=== PATIENT | male | born 1960 | race Caucasian/White ===

== ENCOUNTER → 2016-04-07 | Outpatient (CLI) | payer OTHER ==
--- NOTE | 2016-04-07 12:39 | MR ---
MRI Cervical Spine (Without and With Contrast) History: R20.2, paresthesias of the skin, R53.1, weakness bilateral hands and arms. Technique: Sagittal T1, T2 and axial T1, T2 MR sequences of the cervical spine without contrast. Post contrast sagittal and axial T1-weighted sequences obtained with the uneventful intravenous administra tion of 6.5 mL Gadavist contrast. Findings: No cervical compression fractures or destructive osseous lesions. Endplate diskogenic mercado ges especially at C6-C7. Diffusely decreased T1 bone marrow signal intensity which may represent anem ia or lymphoproliferative disorder. Cerebellar tonsils are in normal position. Cervical spinal cord demonstrates normal signal without cord edema or myelomalacia. C2-C3: Moderate left facet arthropathy and mild right facet arthropathy without stenosis. C3-C4: Moderate bilateral facet arthropathy, mild degenerative disk disease and bilateral uncovertebr al osteophytes resulting in mild central canal stenosis and mild to moderate bilateral neural foramin al stenosis. C4-C5: Mild degenerative disk disease and moderate bilateral facet arthropathy, left worse than right , resulting in mild to moderate left neural foraminal stenosis without central canal stenosis or righ t neural foraminal stenosis. C5-C6: Moderate degenerative disk disease with dorsal disk/osteophyte complex, right uncovertebral os teophytes and moderate bilateral facet arthropathy resulting in mild central canal stenosis, mild to moderate right neural foraminal stenosis, without left neural foraminal stenosis. C6-C7: Severe degenerative disk disease with moderate loss of disk height, endplate diskogenic change s, dorsal disk/osteophyte complex, bilateral uncovertebral osteophytes and moderate bilateral facet a rthropathy resulting in mild central canal stenosis and moderate to severe bilateral neural foraminal stenosis, right worse than left. C7-T1: Moderate bilateral facet arthropathy without disk herniation or stenosis. Postcontrast images demonstrate no diskitis, osteomyelitis, or enhancing lesions. No evidence of cerv ical spinal cord demyelinating plaques or enhancing masses. Impression: 1. No evidence of demyelinating disease, cord compression, or enhancing masses. 2. C6-C7: Moderate to severe bilateral neural foraminal stenosis and mild central canal stenosis seco ndary to severe degenerative disk disease with bilateral uncovertebral osteophytes, dorsal disk/osteo phyte complex and bilateral facet arthropathy. 3. Decreased T1 bone marrow signal intensity of the cervical and upper thoracic spine which may repre sent anemia or lymphoproliferative disorder. 4. Please see above findings at specific disk levels.
== END ==
LOC: FIMAGING 07:16
PROVIDERS: ATTEND Psychiatry & Neurology Neurology
DX: M50.323 Other cervical disc degeneration at C6-C7 level (principal); M99.71 Connective tissue and disc stenosis of intervertebral foramina of cervical region; M12.88 Other specific arthropathies, not elsewhere classified, other specified site

== ENCOUNTER → 2016-04-21 | Outpatient (CLI) | payer OTHER ==
--- NOTE | 2016-04-21 10:15 | US ---
Ultrasound of the Abdomen Complete History: Elevated liver function tests. R79.89 Findings: Gallbladder: No shadowing calculi, wall thickening, or pericholecystic fluid. Common bile duct is 3 m m in diameter which is normal. Liver: Homogeneous in echogenicity and measures 17.5 cm in length. No definite focal lesions. Renal: Right kidney measures 11.3 x 4.3 x 5.1 cm and left kidney 11.3 x 5.1 x 4.8 cm without hydronep hrosis in either kidney. In the upper pole left kidney there is a 2.8 x 2.9 x 3.2 cm simple cyst. In the midpole left kidney there is a 2.9 x 2.9 x 2.8 cm complex cyst with thin septation. Spleen: Homogeneous and 12 cm in length without splenomegaly. Pancreas: Homogeneous without peripancreatic fluid. Benign appearing peripancreatic lymph node measur ing 14 x 6 mm. Aorta: Atherosclerotic abdominal aorta without aneurysm. IVC: Grossly patent. Impression: 1. No cholelithiasis or biliary ductal dilation. 2. Mild hepatomegaly without definite focal masses or ascites. 3. No splenomegaly. 4. Left kidney cysts without hydronephrosis. 5. Atherosclerotic aorta without aneurysm.
== END ==
LOC: BMCIMAGING 08:34
PROVIDERS: ATTEND Family Medicine
DX: R16.0 Hepatomegaly, not elsewhere classified (principal); N28.1 Cyst of kidney, acquired

== ENCOUNTER → 2016-07-28 | Outpatient (CLI) | payer OTHER | LOC: BMCIMAGING 09:26 | PROVIDERS: ATTEND Physician Assistant | DX: Z13.828 Encounter for screening for other musculoskeletal disorder (principal); M16.11 Unilateral primary osteoarthritis, right hip ==

== ENCOUNTER → 2016-12-07 | Outpatient (CLI) | payer OTHER | LOC: CIMAGING 08:17 | PROVIDERS: ATTEND Family Medicine | DX: Z12.2 Encounter for screening for malignant neoplasm of respiratory organs (principal); J98.4 Other disorders of lung; J45.909 Unspecified asthma, uncomplicated; Z87.891 Personal history of nicotine dependence | CPT/HCPCS: 71250-PO ==

== ENCOUNTER → 2016-12-08 | Outpatient (CLI) | payer OTHER | LOC: FIMAGING 08:51 | PROVIDERS: ATTEND Orthopaedic Surgery | DX: Z01.818 Encounter for other preprocedural examination (principal); M25.851 Other specified joint disorders, right hip; M25.451 Effusion, right hip; M51.36 Other intervertebral disc degeneration, lumbar region ==

== ENCOUNTER 2016-12-13 09:05 | Inpatient (IN) | payer OTHER ==
--- NOTE | 2016-12-13 07:03 | PDHPUP ---
History & Physical Update H&P update statement: This history and physical update is based on an assessment of the patient which was completed after admission or registration (within 24 hours), but prior to the surgery/procedure.
--- NOTE | 2016-12-13 07:07 | PDIAF ---
- Diagnosis Diagnosis: right hip djd Code Status: Full Code - Medication Management Discharge Medications: Medications to Continue on Transfer Adefovir Dipivoxil [Hepsera] 10 mg PO HS 12/01/16 [Last Taken Unknown] Diclofenac Sodium [Pennsaid] 20 gm TP BID 12/01/16 [Last Taken Unknown] Gabapentin [Neurontin 100 MG (*)] 200 mg PO HS 12/01/16 [Last Taken Unknown] oxyCODONE IR [Oxycodone Ir (*)] 5 mg PO DAILY PRN 12/01/16 [Last Taken Unknown] Discharge Medications: Refer to the Discharge Home Medication list for PRN reason. - Orders Services needed: Physical Therapy Diet Recommendation: no restrictions on diet Diet Texture: Regular Texture Diet Activity/Weight Bearing Restrictions: wbat. anterior hip precautions. daily dressing changes. no soaking. may shower without bandage. seek attn for increasing redness, swelling, drainage, discharge. f/u at two weeks - Follow Up Care Current Providers and Referrals: Fely Rachel MD [Primary Care Provider] -
[~2016-12-13 09:05] MED LIST: BISACODYL 10 MG SUPP PR PRN; DIAZEPAM 5 MG TAB PO PRN; DIPHENOXYLATE/ATROPINE LOMOTIL 1 TAB PO PRN; LACTULOSE 20 GM/30 ML UDCUP PO PRN; LR 1,000 ML IV SCH; MAGNESIUM HYDROXIDE 30 ML UDCUP PO PRN; METOCLOPRAMIDE 10 MG/2 ML VIAL IVP PRN; NS IV ONE; ONDANSETRON 4 MG/2 ML VIAL IVP PRN; ONDANSETRON DISINTEGRATING 4 MG TAB PO PRN; PHARMACY PAIN CONSULT 1 EA MISC PRN; POLYETHYLENE GLYCOL 3350 17 GM PKT PO PRN; PROMETHAZINE HCL 25 MG SUPPR PR PRN; PROMETHAZINE HCL 25 MG/ML INJ IVP PRN; ROPIVACAINE 0.2% 80 MG, EPINEPHrine 0.2 MG, morphINE 10 MG in BAG 0 ML IU ONE; TEMAZEPAM 15 MG CAP PO PRN; TRANEXAMIC ACID 3,000 MG in NS 50 ML IRR ONE; TRANEXAMIC ACID IV ONE; diphenhydrAMINE 25 MG CAP PO PRN; traMADol 50 MG TAB PO PRN
--- NOTE | 2016-12-13 09:21 | PDANEPAE ---
ANE History of Present Illness 56 year old male w/ PMHx of Hep. B & Osteoarthritis presents for total hip replacment. ANE Past Medical History - Cardiovascular History Hx Hypertension: No Hx Arrhythmias: No Hx Chest Pain: No Hx Coronary Artery / Peripheral Vascular Disease: Yes Hx CHF / Valvular Disease: No Hx Palpitations: No - Pulmonary History Hx COPD: Yes Hx Asthma/Reactive Airway Disease: No Hx Recent Upper Respiratory Infection: No Hx Oxygen in Use at Home: No Hx Sleep Apnea: No Sleep Apnea Screening Result - Last Documented: Negative Pulmonary History Comment: 42 year of smoking - Neurologic History Hx Cerebrovascular Accident: No Hx Seizures: No Hx Dementia: No - Endocrine History Hx Diabetes: No Hypothyroid: No Hyperthyroid: No Obesity: no - Renal History Hx Renal Disorders: No - Liver History Hx Hepatic Disorders: Yes Hepatic History Comment: Hx of Hep B - Neurological & Psychiatric Hx Hx Neurological and Psychiatric Disorders: No Neurological / Psychiatric History Comment: No alcohol in 30 yrs- hx of. - Cancer History Hx Cancer: No - Congenital Disorder History Hx Congenital Disorders: No - GI History Hx Gastrointestinal Disorders: No - Other Health History Other Health History: OA R hip -on Gabapentin for pain. Upper denture - Chronic Pain History Chronic Pain: Yes (R hip) - Surgical History Prior Surgeries: L arm ORIF. L cheekbone sx ANE Review of Systems Review of systems is: negative Review of Systems: - Exercise capacity Exercise capacity: >=4 METS METS (RN): 4 METS ANE Patient History - Allergies Allergies/Adverse Reactions: acetaminophen [From Tylenol] Allergy (Verified 12/13/16 09:52) Other-Enter Comments aspirin Allergy (Verified 12/13/16 09:52) Rash NSAIDS (Non-Steroidal Anti-Inflamma Allergy (Verified 12/13/16 09:52) Other-Enter Comments - Home Medications Home medications: home medication list seen and reviewed Home Medications: Adefovir Dipivoxil [Hepsera] 10 mg PO HS 12/01/16 [Last Taken 12/12/16] Diclofenac Sodium [Pennsaid] 20 gm TP BID 12/01/16 [Last Taken 12/08/16] Gabapentin [Neurontin 100 MG (*)] 200 mg PO HS 12/01/16 [Last Taken 12/12/16] oxyCODONE IR [Oxycodone Ir (*)] 5 mg PO DAILY PRN 12/01/16 [Last Taken 12/12/16] - NPO status NPO Status: no food or drink >8 hours - Anes Hx Anes Hx: no prior problems - Smoking Hx Smoking Status: Former smoker - Alcohol Use Alcohol Use: Rarely - Family Anes Hx Family Anes Hx: neg - N/A ANE Labs/Vital Signs - Vital Signs Vital Signs: reviewed preoperatively; see RN documention for details Height: 177.8 cm Weight: 63.503 kg ANE Physical Exam - Airway Neck exam: FROM Mallampati Score: Class 1 Mouth exam: dentures - Pulmonary Pulmonary: no respiratory distress - Cardiovascular Cardiovascular: regular rate and rhythym - ASA Status ASA Status: II ANE Anesthesia Plan Anesthesia Plan: MAC, spinal
[2016-12-13] MEDS ORDERED: CALCIUM CHLORIDE 1 GM/10 ML INJ ONE (09:23)
[2016-12-13] MEDS ORDERED: THROMBIN (BOVINE) 5,000 UNIT VIAL TP ONE (09:23)
[2016-12-13] MEDS ORDERED: ceFAZolin 1 GM/5 ML SYR ONE (09:24)
[2016-12-13] MEDS ORDERED: FAMOTIDINE 20 MG TAB PO ONE (09:41)
[2016-12-13] MEDS ORDERED: ACETAMINOPHEN 325 MG TAB PO ONE (09:41)
[2016-12-13] MEDS ORDERED: ceFAZolin 2 GM/DEXTROSE 100 ML IV ONE (09:41)
[2016-12-13] MEDS ORDERED: LIDOCAINE 1% 2 ML INJ ID PRN (09:56)
[2016-12-13] MEDS ORDERED: LR 1,000 ML IV ONE (09:56)
[2016-12-13] MEDS ORDERED: MIDAZOLAM 2 MG/2 ML VIAL ONE (10:41)
[2016-12-13] MEDS ORDERED: MIDAZOLAM 2 MG/2 ML VIAL IVP ONE (10:41)
[2016-12-13] MEDS ORDERED: PROPOFOL/EMULSION 500 MG/50 ML BOTTLE IV ONE ×3 (10:44→12:03)
[2016-12-13] MEDS ORDERED: ONDANSETRON 4 MG/2 ML VIAL ONE ×2 (11:16→13:13)
[2016-12-13] MEDS ORDERED: DEXAMETHASONE 4 MG/ML VIAL ONE (11:16)
[2016-12-13] MEDS ORDERED: fentaNYL 100 MCG/2 ML INJ ONE ×2 (11:32→12:41)
[2016-12-13] MEDS ORDERED: epHEDrine SULFATE 10 MG/ML SYR ONE (11:42)
[2016-12-13] MEDS ORDERED: ACETAMINOPHEN 325 MG TAB PO SCH (12:00)
[2016-12-13] MEDS ORDERED: NALOXONE HCL 0.4 MG/ML INJ IVP PRN (12:23)
[2016-12-13] MEDS ORDERED: OXYCODONE/APAP 5/325 TAB PO PRN (12:23)
[2016-12-13] MEDS ORDERED: fentaNYL 100 MCG/2 ML INJ IVP PRN (12:23)
[2016-12-13] MEDS ORDERED: LR 500 ML IV PRN (12:34)
[2016-12-13] MEDS ORDERED: ONDANSETRON 4 MG/2 ML VIAL IVP PRN (12:34)
[2016-12-13] MEDS ORDERED: HYDROmorphONE/DILAUDID 1 MG/ML INJ ONE (13:13)
[2016-12-13] MEDS: HYDROmorphONE/DILAUDID 1 MG/ML INJ IVP PRN ×3 (13:16→13:49)
[2016-12-13] MEDS ORDERED: oxyCODONE IR 5 MG TAB ONE (13:51)
[2016-12-13] MEDS: oxyCODONE IR 5 MG TAB PO PRN ×3 (13:51→20:51)
[2016-12-13] MEDS: ASPIRIN EC 81 MG TAB PO SCH (15:58)
[2016-12-13] MEDS: TRANEXAMIC ACID 650 MG TAB PO SCH ×2 (15:58→16:11)
[2016-12-13] MEDS: SENNOSIDES/DOCUSATE SODIUM TAB PO SCH ×2 (15:59→20:46)
[2016-12-13] MEDS ORDERED: [UNRECOGNIZED DRUG - OTHER] PO SCH ×2 (16:00→21:00)
[2016-12-13] MEDS ORDERED: GABAPENTIN 100 MG CAP PO SCH ×2 (16:00→21:00)
[2016-12-13] MEDS: ceFAZolin 2 GM/DEXTROSE 100 ML IV SCH ×2 (16:10→20:47)
--- NOTE | 2016-12-13 16:44 | POSTANESTH ---
Post Anesthetic Evaluation Cardiovascular Status: Normal, Stable, Similar to Pre-Op Cond Respiratory Status: Normal, Stable, Similar to Pre-op Cond. Level of Consciousness/Mental Status: Can Participate in Eval, Alert and Oriented Pain Control: Adequate, Prn Tx Ordered Nausea/Vomiting Control: Adequate, Prn Tx Ordered Complications Possibly Related to Anesthesia: None Noted
[2016-12-13] MEDS: FAMOTIDINE 20 MG TAB PO SCH (20:46)
[2016-12-14] MEDS: TRANEXAMIC ACID 650 MG TAB PO SCH (00:36)
[2016-12-14] MEDS: oxyCODONE IR 5 MG TAB PO PRN ×2 (01:10→08:52)
[2016-12-14 06:00] LABS: HEMATOCRIT 38.3 % (40.0-51.0)
--- NOTE | 2016-12-14 07:12 | PDIAF ---
- Diagnosis Diagnosis: right hip djd Code Status: Full Code - Medication Management Discharge Medications: Medications to Continue on Transfer Adefovir Dipivoxil [Hepsera] 10 mg PO DAILY16 12/01/16 [Last Taken 12/12/16] Diclofenac Sodium [Pennsaid] 20 gm TP BID 12/01/16 [Last Taken 12/08/16] Gabapentin [Neurontin 100 MG (*)] 200 mg PO DAILY16 12/01/16 [Last Taken ] oxyCODONE IR [Oxycodone Ir (*)] 5 mg PO DAILY PRN 12/01/16 [Last Taken 12/12/16] Aspirin EC [Aspirin EC 81 mg (*)] 81 mg PO DAILY tab 12/14/16 [Last Taken Unknown] oxyCODONE IR [Oxycodone Ir (*)] 5 - 10 mg PO Q3HRS PRN #70 tab 12/14/16 [Last Taken Unknown] Discharge Medications: Refer to the Discharge Home Medication list for PRN reason. - Orders Services needed: Physical Therapy Diet Recommendation: no restrictions on diet Diet Texture: Regular Texture Diet Activity/Weight Bearing Restrictions: wbat. anterior hip precautions. daily dressing changes. no soaking. may shower without bandage. seek attn for increasing redness, swelling, drainage, discharge. f/u at two weeks - Follow Up Care Current Providers and Referrals: Fely Rachel MD [Primary Care Provider] -
--- NOTE | 2016-12-14 07:47 | GDS ---
[f rep st] DISCHARGE SUMMARY ADMISSION DIAGNOSIS: Right hip degenerative joint disease. DISCHARGE DIAGNOSIS: Right hip degenerative joint disease. PROCEDURE: Right total hip arthroplasty. OPERATIVE INDICATIONS: The patient is a 56-year-old gentleman with end-stage arthritis to his right hip. Clinical and radiographic features are consistent with this. He has failed attempts at conserv ative management. Clinical and radiographic features are consistent with hip arthritis. I, therefor e, recommended total hip replacement. He understood the risks, benefits, alternatives and wished to proceed. Written consent was signed and placed in patient's chart. HOSPITAL COURSE: Patient was admitted to the hospital floor after uncomplicated total hip arthroplas ty. He tolerated the procedure well. Postoperatively had no complications. At the time of discharg e, he is tolerating an oral diet. His pain is well controlled on oral medicines. He has no calf swe lling or tenderness. Negative Homans bilaterally. Dressings are clean, dry, and intact. Serial hem atocrit has been stable. X-rays demonstrate anatomic positioning with no fracture lucency with ana maria ntric reduction. DISCHARGE ACTIVITY: He is weightbearing as tolerated. Anterior hip precautions. Daily dressing whit nges. No soaking or immersion. FOLLOWUP: At 2 weeks. DISCHARGE MEDICATIONS: Baby aspirin 81 mg p.o. daily for 6 weeks and oxycodone 5 mg 1-3 every 4 hour s p.r.n. pain. Seek attention for increasing redness, swelling, drainage, discharge, or other focal complaint. /[id number]/MODL
[2016-12-14] MEDS: ASPIRIN EC 81 MG TAB PO SCH (08:52)
[2016-12-14] MEDS: FAMOTIDINE 20 MG TAB PO SCH (08:52)
[2016-12-14] MEDS: SENNOSIDES/DOCUSATE SODIUM TAB PO SCH (08:52)
--- NOTE | 2016-12-14 10:01 | ASMTCMCOM ---
CM Note CM Note Notes: Met with patient regarding discharge poc. PT recommending HHC, patient in agreement. CM explained HC choices, patient would like [facility]. Spoke with Chio at [facility] regarding referral, able to accept. Patient's mother to assist in obtaining DME and will transport patient back home. [facility] to access discharge orders/meds online. CM avail. for any further needs. Date Signed: 12/14/2016 10:01 AM Electronically Signed By:Jenae Flores RN
[2016-12-14 12:03] VITALS: BP 119/72; PULSE 87; RESP 16; TEMP 99.1; O2SAT 92
--- NOTE | 2016-12-14 14:40 | ASDISCHSUM ---
Discharge Information Plan Status:Home with Home Health Medically Cleared to Leave:12/14/2016 Discharge Date:12/14/2016 01:21 PM D/C Disposition:Home Health Service [facility] D/C Disposition:Home, Routine, Self-Care Projected Discharge Date:12/14/2016 11:00 AM Transportation at D/C:Family Discharge Delay Reason: Follow-Up Date:12/14/2016 11:00 AM Discharge Slot: Final Diagnosis: Placement Information Referral Type:*Home Health Care Services Referral ID:[id number] Provider Name:[facility] [address] [place] [address] Address 2: City:[place] Selection Factors: State:[place] Patient Contact Information Contact Name:TREVOR Relationship:Mother Address: Work Phone: City: [facility] Phone: [facility] Code: Email: Financial Information Financial Class:HMO and PPO Plans Primary Plan Desc:[employer] Primary Plan Number:[id number] Secondary Plan Desc: Secondary Plan Number: Assessment Information [facility] CM Progress Note CM Note CM Note Notes: Met with patient regarding discharge poc. PT recommending HHC, patient in agreement. CM explained HC choices, patient would like [facility]. Spoke with Chio at [facility] regarding referral, able to accept. Patient's mother to assist in obtaining DME and will transport patient back home. [facility] to access discharge orders/meds online. CM avail. for any further needs. Date Signed: 12/14/2016 10:01 AM Electronically Signed By:Jenae Flores RN Intervention Information
--- NOTE | 2016-12-17 15:36 | GOP ---
[f rep st] OPERATIVE REPORT DATE OF OPERATION: 12/13/2016 SURGEON: Eitan Canales MD FLASH DEVELOPER: Roby Foss, NETWORK SECURITY ADMINISTRATOR, PROPOSAL SPECIALIST, surgical aides teacher,, who was a medical necessity for the entir ety of the case. PREOPERATIVE DIAGNOSIS: Right hip degenerative joint disease. POSTOPERATIVE DIAGNOSIS: Right hip degenerative joint disease. PROCEDURE PERFORMED: Right total hip arthroplasty-MAKOplasty. FINDINGS: SPECIMENS: Pathology, the femoral head. INDICATIONS: The patient is a 56-year-old gentleman with end-stage arthritis to his right hip. He h as failed all attempts at conservative management. Clinical and radiographic features are consistent with hip arthritis. Given the persistent nature of his symptoms, I have recommended surgical interv ention. I have outlined the surgical procedure, risks, benefits, and alternatives. He wished to pro ceed. Written consent was signed and placed in the patient's chart. DESCRIPTION OF PROCEDURE: The patient was identified in the preanesthesia area. The right hip clear ly demarcated as operative site with indelible marker. He was given 2 g of Ancef intravenously en ro caprice to the operative suite. In the OR, general endotracheal anesthesia was administered. Attention was turned to the pelvis and both lower extremities. These were sterilely prepped and draped in the usual fashion. Appropriate time-out procedure was carried out. Attention was first turned to the le ft hemipelvis. A 2 cm incision was made over the superior iliac crest, and 3 pins were then placed f or the MAKOplasty protocol reference array. Attention was then turned to the right hip. An anterior approach was made. Thick subcutaneous flaps were elevated, followed by elevation of the tensor fascia. The tensor was retracted laterally. The underlying vascular structures were identified, ligated, and transected. The rectus was elevated of f the anterior capsule. Retractors were placed in an extracapsular position over the medial and supe rior aspect of the femoral neck. A T was made in the capsule and the retractors were placed into an intracapsular position. A pelvic acetabular checkpoint was placed. A bony wedge was removed from th e femoral neck, followed by removal of the head. This demonstrated eburnation of the bone which was consistent with end-stage arthritis. The labrum was sharply excised. The bony landmarks to the acet abulum were entered into the robot in the MAKOplasty protocol using a single stage reamer. A size 60 mm outer diameter reamer was placed with an opening angle of 40 degrees and anteversion of 20 degree s. A 60 mm titanium shell was then impacted fully. Two 6.5 mm cancellous screws were then opened. A single 6.5 mm cancellous screw was placed. A Trident X3 0-degree polyethylene insert was then plac ed and confirmed to be fully seated. Attention was then turned to the femur, which was delivered through the use of extension of the table , soft tissue releases, and retractors. The proximal canal was opened. Serial broaching was carried out to a size 5 stem. Intraoperative trialing was carried out. Appropriate fluoroscopic imaging wa s utilized, and ultimately a size 5 stem was impacted across the trunnion and confirmed to be fully s eated. A 36 mm, +7.5 mm Biolox head was then impacted across the trunnion. Trial reduction revealed appropriate leg length congregation. Stability profile was full extension and external rotation with out instability. The wound was copiously irrigated, closed in layers using 0 Vicryl, 2-0 Monocryl, a nd ladan. The margins were instilled with a joint cocktail of ropivacaine, morphine, Toradol, and epinephrine. Sterile dressing was applied. The patient was awakened, extubated and taken to recover y room in good, stable condition. TOTAL TOURNIQUET TIME: None. COMPLICATIONS: None. IMPLANTS: Shelton Tritanium acetabular shell, size 60, single 6.5 mm cancellous bone screw, a Triden t X3 0-degree polyethylene insert, 36 mm inner diameter Accolade II 132 degree neck angle hip stem, s ize 5, and Biolox ceramic head 36 mm, +7.5 mm neck length. The patient was awakened, extubated and taken to recovery room in good, stable condition. Copy requested to: Primary Care /[id number]/MODL
== END 2016-12-14 13:21 | disposition home health service (06) | DRG 470 ==
LOC: F3N 09:05
PROVIDERS: ADMIT Orthopaedic Surgery; ATTEND Orthopaedic Surgery
PROC: 0SR904Z Replacement of Right Hip Joint with Ceramic on Polyethylene Synthetic Substitute, Open Approach (ICD-10-PCS; principal; 2016-12-13 11:00)
DX: M16.11 Unilateral primary osteoarthritis, right hip (principal); Z86.19 Personal history of other infectious and parasitic diseases; Z87.891 Personal history of nicotine dependence
CPT/HCPCS: 97110-GP; 97116-GP; 97161-GP; 97165-GO; 97530-GP; 97535-GO; C1713; J0171; J0690; J1100; J1170; J2250; J2405; J2704; J2795; J3010

== ENCOUNTER → 2017-02-01 | Outpatient (CLI) | payer OTHER | LOC: BMCIMAGING 08:25 | PROVIDERS: ATTEND Physician Assistant | DX: Z09 Encounter for follow-up examination after completed treatment for conditions other than malignant neoplasm (principal); Z96.641 Presence of right artificial hip joint ==

== ENCOUNTER → 2018-01-24 | Outpatient (CLI) | payer OTHER | LOC: FIMAGING 14:50 | PROVIDERS: ATTEND Family Medicine | DX: J43.9 Emphysema, unspecified (principal); J98.4 Other disorders of lung ==